=== PATIENT | male | born 1960 | race Caucasian/White ===

== ENCOUNTER → 2016-12-20 | Outpatient (CLI) | payer MEDICAID | LOC: FCPNEURO 16:04 | PROVIDERS: ATTEND Psychiatry & Neurology Sleep Medicine | DX: G47.33 Obstructive sleep apnea (adult) (pediatric) (principal); G47.34 Idiopathic sleep related nonobstructive alveolar hypoventilation; G47.61 Periodic limb movement disorder ==

== ENCOUNTER → 2018-03-07 | Outpatient (CLI) | payer MEDICAID | LOC: CIMAGING 07:50 | PROVIDERS: ATTEND Internal Medicine | DX: K76.0 Fatty (change of) liver, not elsewhere classified (principal) | CPT/HCPCS: 76700-PO ==

== ENCOUNTER → 2018-10-01 | Outpatient (CLI) | payer MEDICAID | LOC: EMCIMAGING 07:25 | PROVIDERS: ATTEND Internal Medicine | DX: K76.0 Fatty (change of) liver, not elsewhere classified (principal); N28.1 Cyst of kidney, acquired; Z90.49 Acquired absence of other specified parts of digestive tract | CPT/HCPCS: 76700-PN ==